=== PATIENT | male | born 1960 | race Caucasian/White ===

== ENCOUNTER 2024-06-05 08:27 | Day surgery (SDC) | payer BC, OTHER ==
[~2024-06-05] VITALS: Ht 177.8 cm; Wt 102.5 kg
[2024-06-05 09:29] LABS: BASOPHILS # (AUTO) 0.1 K/uL (0.0-0.2); BASOPHILS % (AUTO) 0.7 % (0.0-2.0); EOSINOPHILS # (AUTO) 0.1 K/uL (0.0-0.4); EOSINOPHILS % (AUTO) 1.3 % (0.0-4.0); HEMATOCRIT 41.4 % (36-54); HEMOGLOBIN 13.8 g/dL (14.0-18.0); LYMPHOCYTES # (AUTO) 1.9 K/uL (1.0-5.5); LYMPHOCYTES % (AUTO) 21.9 % (20.5-51.5); MEAN CORPUSCULAR HEMOGLOBIN 29 pg (27-31); MEAN CORPUSCULAR HGB CONC 33 % (32-36); MEAN CORPUSCULAR VOLUME 88 fL (79.0-98.0); MONOCYTES # (AUTO) 0.8 K/uL (0.0-1.0); MONOCYTES % (AUTO) 8.9 % (1.7-9.3); NEUTROPHILS # (AUTO) 5.8 K/uL (1.8-7.7); NEUTROPHILS % (AUTO) 67.2 % (40.0-70.0); PLATELET COUNT (AUTO) 254 K/uL (130-430); RED BLOOD CELL COUNT(AUTO) 4.69 MIL/uL (4.2-6.2); RED CELL DISTRIBUTION WIDTH 14.4 % (9.0-15.0); WHITE BLOOD COUNT (AUTO) 8.6 K/uL (4.8-10.8)
[2024-06-05] MEDS ORDERED: BENZOCAINE 20% 0.5mL UD SPRAY MM ONE (09:59)
[2024-06-05] MEDS ORDERED: ONDANSETRON HCL 4 MG/2 ML VIAL IVP PRN (10:15)
[2024-06-05] MEDS ORDERED: LR 1,000 ML IV SCH (10:15)
[2024-06-05 14:27] VITALS: BP_SYST 97; PULSE 65; RESP 18; TEMP 97.6; O2SAT 98
== END 2024-06-05 11:58 | disposition home or self-care (01) ==
LOC: SGI 08:27 → SMU 08:30 → SGI 11:58
PROVIDERS: ATTEND Internal Medicine
DX: K22.81 Esophageal polyp (principal); C16.0 Malignant neoplasm of cardia; I85.00 Esophageal varices without bleeding; E66.3 Overweight; Z98.890 Other specified postprocedural states; Z68.32 Body mass index [BMI] 32.0-32.9, adult; Z79.899 Other long term (current) drug therapy; Z87.19 Personal history of other diseases of the digestive system
CPT/HCPCS: 43239; 71045; 93005; 85025; 36415; 88305; 88312; 88313; G0378